=== PATIENT | female | born 1955 | race Caucasian/White ===

== ENCOUNTER → 2025-10-03 07:28 | Outpatient (REF) | payer MEDICARE, OTHER, SELFPAY | LOC: HWRAD 07:28 | PROVIDERS: ATTENDING PHYSICIAN Obstetrics & Gynecology; FAMILY PHYSICIAN Internal Medicine | DX: Z78.0 Asymptomatic menopausal state (principal); Z13.820 Encounter for screening for osteoporosis | CPT/HCPCS: 77080 ==

== ENCOUNTER → 2025-11-16 07:50 | Outpatient (REF) | payer MEDICARE, OTHER, SELFPAY | LOC: DHVS 07:50 | PROVIDERS: ATTENDING PHYSICIAN Internal Medicine | DX: R20.0 Anesthesia of skin (principal) | CPT/HCPCS: 93922; 93925 ==